=== PATIENT | female | born 1965 | race Caucasian/White ===

== ENCOUNTER 2019-12-30 11:52 | Emergency (ER) | payer MEDICARE, OTHER, SELFPAY ==
--- NOTE | 2019-12-30 12:07 | ED.BACK ---
HPI - Back Pain/Injury General Chief Complaint: Back Pain/Injury Stated Complaint: R/hip pain Time Seen by Provider: 12/30/19 12:07 Source: patient and RN notes reviewed History of Present Illness HPI Narrative: Patient is a 54-year-old female who presents the urgent care with complaints of right hip and low back pain. Patient states that the low back pain started approximately 2 weeks ago and she has had the right hip pain for the last 2 days. Patient states she has a history of sciatica as well as fibromyalgia and does see pain management in [place]. Patient states that she recently moved here and has not followed up with any doctors or obtain a PCP. Patient states that she has been taking her gabapentin but otherwise has not used anything else [id number] for her pain. Patient also reports of using ice to the right hip/low back. Denies of any recent fall or trauma. No other acute complaints. No acute distress noted. Patient read the plan of care. Related Data Home Medications Medication Instructions Recorded Confirmed duloxetine 20 mg PO DAILY 12/30/19 12/30/19 gabapentin 800 mg PO BID 12/30/19 12/30/19 nortriptyline 25 mg PO HS 12/30/19 12/30/19 Allergies Allergy/AdvReac Type Severity Reaction Status Date / Time Penicillins Allergy Unknown Verified 12/30/19 12:16 Review of Systems Review of Systems: Narrative: CONSTITUTIONAL: Denies fever, chills, or sweats. EYES: Denies visual changes, redness, or discharge. ENT: Denies rhinorrhea, congestion, sore throat, or otalgia. CARDIOVASCULAR: Denies chest pain, palpitations, or edema. RESPIRATORY: Denies cough or dyspnea. GASTROINTESTINAL: Denies abdominal pain, nausea, vomiting, or diarrhea. GENITOURINARY: Denies dysuria or hematuria. SKIN: Denies rash or itching. MUSCULOSKELETAL: Reports of right hip and right low back pain NEUROLOGIC: Denies headache, numbness, or weakness. All other systems reviewed are negative, except as documented in HPI. PMFSH Comments At the time of my signature, I reviewed and agree with the nursing past medical, surgical, social, and family history. There is no relevant family history pertinent to the patient complaint. Exam Narrative: Exam Narrative: GENERAL: This is a well-nourished, well-developed patient, in no apparent distress. HEAD: normocephalic, atraumatic. EYES: PERRL. Sclera clear/white. Vision is grossly intact. EARS: External ears normal NOSE: External nose normal with no obvious nasal discharge, nares without redness, no rhinorrhea. THROAT: Mucous membranes moist NECK: Neck supple SKIN: warm, intact with no suspicious lesions or rash, good texture and turgor. NEURO: awake, alert, and oriented to person, place and time. There were no obvious focal neurologic abnormalities. EXTREMITIES: No clubbing, cyanosis, or edema. BACK: Mild right-sided piriformis tenderness with positive right SLE Course Vital Signs Vital signs: Vital Signs Temperature 99.3 F 12/30/19 12:08 Pulse Rate 92 12/30/19 12:08 Respiratory Rate 18 12/30/19 12:08 Blood Pressure 135/83 12/30/19 12:08 Pulse Oximetry 100 12/30/19 12:08 Temperature 99.3 F 12/30/19 12:08 Pulse Rate 92 12/30/19 12:08 Respiratory Rate 18 12/30/19 12:08 Blood Pressure 135/83 12/30/19 12:08 Pulse Oximetry 100 12/30/19 12:08 Reviewed MDM - Back Pain/Injury MDM Narrative Medical decision making narrative: Advised the patient to continue using current prescription medication for pain. Complete steroid regimen as prescribed. Start the tapering steroid tomorrow due to having a high-dose steroid given in the facility today. Use Flexeril as needed for a muscle relaxer. Do not drive or operate heavy machinery while taking the Flexeril, due to drowsiness. Most important to use prior to bedtime. Continue to use ice or heat to the low back/right hip as needed for comfort. Continue exercises for sciatica pain that you have been directed on in the
[2019-12-30 12:08] VITALS: BP 135/83; PULSE 92; RESP 18; TEMP 37.4; O2SAT 100
== END 2019-12-30 12:29 | disposition home or self-care (01) ==
PROVIDERS: Emergency Provider Nurse Practitioner Family
DX: M54.31 Sciatica, right side (principal); M79.7 Fibromyalgia
CPT/HCPCS: 99203; 99213; G0463